=== PATIENT | female | born 1985 | race Caucasian/White ===

== ENCOUNTER 2016-12-10 21:34 | Emergency (ER) | payer OTHER ==
[~2016-12-10] VITALS: Ht 162.5 cm; Wt 104.3 kg
[~2016-12-10 21:34] MED LIST: ANAPROX DS550 MG PO; ATOXIMETIN-B1 CAP PO; CATAFLAM50 MG PO; FLONASE 0.05% 121 EA NAS; HYDROCODONE BIT1 T11 PO; KENALOG0.1% TP; MAREPA1200 MG PO; MOTRIN800 MG PO; NKHM; PERCOCET 325 MG1 TA5 PO; PREDNICOT20 MG PO; TESSALON PERLE100 M1 PO; ZITHROMAX Z PA250 MG PO; ZYRTEC10 MG PO
== END 2016-12-10 23:06 | disposition home or self-care (01) ==
LOC: ED 21:34
DX: N64.4 Mastodynia (principal); Z88.0 Allergy status to penicillin; Z88.1 Allergy status to other antibiotic agents; Z91.040 Latex allergy status

== ENCOUNTER 2016-12-14 13:53 | Emergency (ER) | payer OTHER ==
[~2016-12-14] VITALS: Ht 162.5 cm; Wt 103.9 kg
[2016-12-14] MEDS ORDERED: NAPROSYN500 MG PO (15:59)
== END 2016-12-14 16:01 | disposition home or self-care (01) ==
LOC: ED 13:53
DX: M77.42 Metatarsalgia, left foot (principal); Z88.0 Allergy status to penicillin; Z88.1 Allergy status to other antibiotic agents; Z91.040 Latex allergy status

== ENCOUNTER 2017-07-09 20:40 | Emergency (ER) | payer OTHER ==
[~2017-07-09] VITALS: Ht 160 cm; Wt 105.2 kg
[~2017-07-09 20:40] MED LIST changes: +NAPROSYN500 MG PO
[2017-07-09] MEDS ORDERED: REGLAN10 M1 PO (23:15)
[2017-07-09] MEDS ORDERED: Fioricet 325 MG1 TAB PO (23:20)
== END 2017-07-09 23:53 | disposition home or self-care (01) ==
LOC: ED 20:40
DX: R51 Headache (principal); Z98.51 Tubal ligation status; Z88.1 Allergy status to other antibiotic agents; Z91.040 Latex allergy status; Z88.0 Allergy status to penicillin

== ENCOUNTER 2017-09-22 14:05 | Emergency (ER) | payer OTHER ==
[~2017-09-22] VITALS: Ht 160 cm; Wt 104.3 kg
[~2017-09-22 14:05] MED LIST changes: +Fioricet 325 MG1 TAB PO; +REGLAN10 M1 PO
[2017-09-22 14:44] LABS: BASO # 0.1 10*3/uL (0.0-0.1); BASO % 0.6 % (0.0-1.0); EOS # 0.1 10*3/uL (0.0-0.4); EOS % 1.3 % (1.0-4.0); HEMATOCRIT 37.9 % (37.0-47.0); HEMOGLOBIN 13.1 g/dl (12.0-16.0); LYMPH # 3.2 10*3/uL (1.3-4.4); LYMPH % 30.7 % (27.0-41.0); MEAN CORPUSCULAR HGB 29.4 pg (27.0-31.0); MEAN CORPUSCULAR HGB CONC 34.6 g/dl (33.0-37.0); MEAN PLATELET VOLUME 9.6 fl (9.6-12.3); MONO # 0.6 10*3/uL (0.1-1.0); MONO % 5.8 % (3.0-9.0); NEUT # 6.4 10*3/uL (2.3-7.9); NEUT % 61.3 % (47.0-73.0); PLATELET COUNT AUTOMATED 293 10*3/uL (130-400); RED BLOOD COUNT 4.46 10*6/uL (4.10-5.10); RED CELL DISTRI WIDTH 12.5 % (0-14.5); WHITE BLOOD COUNT 10.4 10*3/uL (4.8-10.8)
[2017-09-22 14:45] LABS: BILIRUBIN NEGATIVE (NEGATIVE); BLOOD TRACE-INTACT (NEGATIVE); CLARITY SL CLOUDY (CLEAR); COLOR YELLOW (YELLOW); GLUCOSE NEGATIVE (NEGATIVE); KETONE TRACE (NEGATIVE); LEUKO ESTERASE 3+ (NEGATIVE); NITRITE NEGATIVE (NEGATIVE); PH 8.5 (5.0-9.0); SPECIFIC GRAVITY 1.015 (1.005-1.030)
[2017-09-22 15:14] LABS: ALBUMIN 3.7 gm/dl (3.1-4.5); ALKALINE PHOSPHATASE 79 U/L (45-117); BUN 11 mg/dl (7-24); CHLORIDE 104 mmol/L (98-107); CREATININE 0.77 mg/dL (0.55-1.02); LIPASE 110 U/L (73-393); POTASSIUM 3.6 mmol/L (3.5-5.1); SGOT/AST 27 IU/L (3-35); SGPT/ALT 30 U/L (12-78); SODIUM 140 mmol/L (136-145); TOTAL PROTEIN 7.1 gm/dL (6.4-8.2)
[2017-09-22 15:21] LABS: BACTERIA 2+; WBC 21-30 wbc/hpf (0-5)
== END 2017-09-22 15:31 | disposition home or self-care (01) ==
LOC: ED 14:05
PROVIDERS: Emergency Medicine
DX: K80.80 Other cholelithiasis without obstruction (principal); K80.50 Calculus of bile duct without cholangitis or cholecystitis without obstruction; E66.01 Morbid (severe) obesity due to excess calories; Z68.41 Body mass index [BMI] 40.0-44.9, adult; Z98.51 Tubal ligation status; Z88.0 Allergy status to penicillin; Z91.040 Latex allergy status; Z88.1 Allergy status to other antibiotic agents

== ENCOUNTER → 2017-09-25 | Outpatient (CLI) | payer OTHER | END | disposition home or self-care (01) | LOC: US 09:29 | DX: K80.20 Calculus of gallbladder without cholecystitis without obstruction (principal) ==

== ENCOUNTER → 2017-11-12 | Day surgery (SDC) | payer OTHER ==
[~2017-11-12] VITALS: Ht 162.5 cm; Wt 104.3 kg
[2017-11-12] VITALS (8 sets, daily range): BP systolic 107–134; BP diastolic 63–87
[~2017-11-12] MED LIST changes: +TRAMADOL HCL50 MG PO
== END | disposition home or self-care (01) ==
LOC: SDC 11-11 10:15
DX: K80.10 Calculus of gallbladder with chronic cholecystitis without obstruction (principal); E78.5 Hyperlipidemia, unspecified; J45.909 Unspecified asthma, uncomplicated; F41.9 Anxiety disorder, unspecified; F32.9 Major depressive disorder, single episode, unspecified; Z88.0 Allergy status to penicillin; Z98.51 Tubal ligation status; Z82.49 Family history of ischemic heart disease and other diseases of the circulatory system; Z87.891 Personal history of nicotine dependence

== ENCOUNTER 2018-11-21 10:06 | Emergency (ER) | payer OTHER ==
[~2018-11-21] VITALS: Wt 105.2 kg
[2018-11-21] MEDS ORDERED: ROBAXIN500 M1 PO (12:09)
[2018-11-21] MEDS ORDERED: MEDROL DOSEPAK4 MG PO (12:09)
[2018-11-21] MEDS ORDERED: NAPROSYN500 MG PO (12:09)
== END 2018-11-21 12:22 | disposition home or self-care (01) ==
LOC: ED 10:06
DX: S46.911A Strain of unspecified muscle, fascia and tendon at shoulder and upper arm level, right arm, initial encounter (principal); S09.90XA Unspecified injury of head, initial encounter; L23.7 Allergic contact dermatitis due to plants, except food; Z88.0 Allergy status to penicillin; Z88.1 Allergy status to other antibiotic agents; Z91.040 Latex allergy status; Z79.899 Other long term (current) drug therapy; W01.198A Fall on same level from slipping, tripping and stumbling with subsequent striking against other object, initial encounter; Y93.89 Activity, other specified; Y92.098 Other place in other non-institutional residence as the place of occurrence of the external cause; Y99.8 Other external cause status

== ENCOUNTER → 2020-06-15 | Outpatient (CLI) | payer OTHER ==
[~2020-06-15] MED LIST changes: +MEDROL DOSEPAK4 MG PO; +ROBAXIN500 M1 PO
== END | disposition home or self-care (01) ==
LOC: RAD 10:08
PROVIDERS: ATTEND Internal Medicine
DX: Z02.1 Encounter for pre-employment examination (principal)